=== PATIENT | female | born 1990 | race Two or more races ===

== ENCOUNTER 2024-10-10 06:02 | Day surgery (SDC) | payer OTHER ==
[2024-10-09 16:32] LABS: HEMATOCRIT 39.2 % (36.0-45.00); HEMOGLOBIN 13.6 g/dL (12.0-15.00); MEAN CELL VOLUME 88.3 fL (80.00-100.00); MEAN CORPUSCULAR HEMOGLOBIN 30.6 pg (27.00-32.0); MEAN CORPUSCULAR HGB CONC 34.7 g/dl (32.0-36.0); PLATELET COUNT 221 K/uL (150-450); RED BLOOD COUNT 4.44 M/uL (4.00-6.00); RED CELL DISTRIBUTION WIDTH 14.1 % (11.5-14.5)
[2024-10-09 17:16] LABS: INR 0.96; PARTIAL THROMBOPLASTIN TIME 29.4 SECONDS (22.0-34.0); PROTHROMBIN TIME 10.5 SECONDS (9.0-11.5)
[2024-10-09 18:07] LABS: RH POSITIVE
[2024-10-10] MEDS ORDERED: CEFOXITIN SODIUM 2,000 MG VIAL IV ONE (10:30)
[2024-10-10] MEDS ORDERED: CHLORHEXIDINE GLUCONATE 240 ML BOTTLE TOP ONE (10:30)
[2024-10-10] MEDS ORDERED: PROMETHAZINE HCL 50 MG/ML AMPUL IM ONE (11:30)
[2024-10-10] MEDS ORDERED: MORPHINE SULFATE 4 MG/ML VIAL IV PRN (11:30)
== END 2024-10-10 16:00 | disposition home or self-care (01) ==
LOC: CIR.AMB 06:02
PROVIDERS: ATTEND Obstetrics & Gynecology Maternal & Fetal Medicine
DX: O02.1 Missed abortion (principal); Z88.6 Allergy status to analgesic agent